=== PATIENT | female | born 1990 | race African-American/Black ===

== ENCOUNTER 2025-03-07 10:56 | Emergency (ER) | payer MEDICAID ==
[~2025-03-07] VITALS: Ht 154.9 cm; Wt 69.3 kg
[2025-03-07 11:09] VITALS: O2SAT 99
[2025-03-07 13:47] LABS: BASOPHILS % 0.3 % (0.0-2.0); EOSINOPHILS % 0.2 % (0.0-5.0); HEMATOCRIT. 34.4 % (36.0-48.0); HEMOGLOBIN. 11.4 g/dL (12.0-16.0); LYMPHOCYTES % 26.3 % (20.0-50.0); MEAN CORPUSCULAR HGB CONC 33.2 g/dL (31.0-37.0); MEAN CORPUSCULAR VOLUME 87.2 fL (81.0-99.0); MEAN PLATELET VOLUME 11.1 fl (7.4-10.4); MONOCYTES % 13.5 % (2.0-8.0); NEUTROPHILS % 59.7 % (40.0-76.0); PLATELET 189 x1000/uL (130-400); RED BLOOD CELL COUNT 3.94 mill/uL (4.2-5.4); RED CELL DISTRIBUTION WIDTH 14.6 % (11.6-14.6); WHITE BLOOD COUNT 8.3 x1000/uL (4.5-11.0)
[2025-03-07 13:48] LABS: CARBON DIOXIDE 26 mEq/L (21-32); CHLORIDE 107 mEq/L (98-107); POTASSIUM 3.6 mEq/L (3.5-5.1); SODIUM 139 mEq/L (136-145)
[2025-03-07 13:49] LABS: CALCIUM 9.7 mg/dL (8.7-10.4)
[2025-03-07 13:54] LABS: CREATININE 0.6 mg/dL (0.6-1.0); GLUCOSE 98 mg/dL (70-105); UREA NITROGEN BLOOD 8 mg/dL (9-23)
[2025-03-07 13:55] LABS: ALANINE AMINOTRANSFERASE 39 IU/L (10-49); ALBUMIN 4.6 g/dL (3.2-4.8); ASPARTATE AMINOTRANSFERASE 46 IU/L (<34)
[2025-03-07 13:56] LABS: BILIRUBIN TOTAL 0.4 mg/dL (0.1-1.0); PROTEIN TOTAL 7.9 g/dL (6.0-8.3)
[2025-03-07 14:14] LABS: HCG SCREEN NEGATIVE
[2025-03-07 14:39] LABS: CLARITY URINE CLOUDY (CLEAR); COLOR URINE YELLOW (YELLOW); GLUCOSE URINE NEGATIVE (NEGATIVE); KETONES URINE NEGATIVE (NEGATIVE); LEUKOCYTE ESTERASE URINE TRACE (NEGATIVE); NITRITE URINE NEGATIVE (NEGATIVE); OCCULT BLOOD URINE 2+ (NEGATIVE); PH URINE 6.5 (4.5-8.0); PROTEIN URINE NEGATIVE (NEGATIVE)
[2025-03-07 15:15] LABS: RBC URINE NONE SEEN /hpf (0-2); SQUAMOUS EPITHELIAL CELL URINE 2+ /lpf (RARE/1+)
[2025-03-07 15:16] LABS: BACTERIA URINE 3+; MUCUS URINE 2+ /lpf (< = 2+)
[2025-03-07] MEDS ORDERED: CEPH500C2 MT (15:36)
[2025-03-07] MEDS: KETOROLAC 30MG/ML VIAL IM ONE (16:26)
[2025-03-07 16:29] VITALS: BP 121/69; PULSE 91; RESP 18; TEMP 36.8; O2SAT 99
== END 2025-03-07 16:30 | disposition home or self-care (01) ==
LOC: ER 10:56
DX: A08.4 Viral intestinal infection, unspecified (principal); N39.0 Urinary tract infection, site not specified; Z98.890 Other specified postprocedural states
CPT/HCPCS: 99284; 71045; 80053; 81003; 81025; 84703; 85025; 36415; 96372; J1885